=== PATIENT | male | born 1965 | race Two or more races ===

== ENCOUNTER 2024-02-11 04:53 | Inpatient (IN) | payer OTHER ==
[~2024-02-11] VITALS: Ht 165.1 cm; Wt 172.0 kg
[2024-02-11 05:39] LABS: BASOPHILS % (AUTO) 0.2 % (0.0-2.0); EOSINOPHILS % (AUTO) 0.2 % (1.0-6.0); HEMATOCRIT 40.4 % (41-53); HEMOGLOBIN 13.7 g/dL (13.5-17.5); LYMPHOCYTES # (AUTO) 1.1 K/uL (1.0-4.8); LYMPHOCYTES % (AUTO) 6.1 % (22.0-44.0); MEAN CORPUSCULAR HEMOGLOBIN 30.9 pg (26.0-34.0); MEAN CORPUSCULAR HGB CONC 33.9 G/dL (31.0-37.0); MEAN CORPUSCULAR VOLUME 91 fL (80-100); MONOCYTES # (AUTO) 1.4 K/uL (0.1-1.0); MONOCYTES % (AUTO) 7.7 % (2.0-9.0); NEUTROPHILS # (AUTO) 15.5 K/uL (1.8-7.7); PLATELET COUNT (AUTO) 373 K/uL (150-450); RED BLOOD CELL COUNT(AUTO) 4.44 MIL/uL (4.50-5.90); RED CELL DISTRIBUTION WIDTH 14.7 % (11.5-14.5); WHITE BLOOD COUNT (AUTO) 18.1 K/uL (4.5-11.0)
[2024-02-11 05:41] LABS: NEUTROPHILS % (AUTO) 85.8 % (40.0-70.0)
[2024-02-11 05:48] LABS: ANION GAP 11 mmol/L (8-16); CALCIUM, TOTAL 8.4 mg/dL (8.8-10.5); CARBON DIOXIDE 24 mmol/L (22-29); CHLORIDE 101 mmol/L (98-107); GLOMERULAR FILTR. RATE CALC > 60 mL/min (>60); GLUCOSE,RANDOM 148 mg/dL (70-110); POTASSIUM 3.9 mmol/L (3.5-5.1); SODIUM SERUM 136 mmol/L (136-145); UREA NITROGEN, BLOOD 15 mg/dL (7-18)
[2024-02-11 05:51] LABS: ALANINE AMINOTRANSFERASE 53 U/L (12-78); ALBUMIN 3.6 g/dL (3.4-5.0); ALKALINE PHOSPHATASE 147 U/L (46-116); ASPARTATE AMINOTRANSFERASE 33 U/L (15-37); BILIRUBIN,TOTAL 0.8 mg/dL (0.1-1.0); LIPASE 25 U/L (16-77); TOTAL PROTEIN, SERUM 8.1 g/dL (6.4-8.2)
[2024-02-11 05:51] LABS: APPEARANCE,URINE CLEAR (CLEAR); BILIRUBIN,URINE NEGATIVE (NEGATIVE); COLOR,URINE LIGHT YELLOW (YELLOW); GLUCOSE, URINE (UA) NEGATIVE (NEGATIVE); KETONES,URINE NEGATIVE (NEGATIVE); LEUKOCYTE ESTERASE ,URINE NEGATIVE (NEGATIVE); NITRATE,URINE NEGATIVE (NEGATIVE); OCCULT BLOOD,URINE SMALL (NEGATIVE); PROTEIN,URINE TRACE mg/dL (NEGATIVE); SPECIFIC GRAVITIY, URINE 1.026 (1.003-1.030); UROBILINOGEN,URINE <=1.0 mg/dL (<=1.0)
[2024-02-11 05:58] LABS: BACTERIA,URINE None Seen /HPF (None Seen); SQUAMOUS EPITHELIAL CELL,UR Few /LPF (None Seen); WBC,URINE None Seen /HPF (0-5)
[2024-02-11] MEDS: SODIUM CHLORIDE 0.9% 1,000 ML IV ONE (06:15)
[2024-02-11] MEDS: ONDANSETRON HCL 4 MG/2 ML VIAL IVP ONE (06:46)
[2024-02-11] MEDS: MORPHINE SULFATE 2 MG/ML SYRINGE IVP ONE (06:47)
[2024-02-11] MEDS: PIPERACILLIN/TAZO 3.375 GM/D5W 50 ML IV ONE (07:13)
[2024-02-11] MEDS ORDERED: 0.9% SODIUM CHLORIDE 10 ML SYRINGE IVP PRN (07:15)
[2024-02-11] MEDS ORDERED: ONDANSETRON HCL 4 MG/2 ML VIAL IVP PRN ×2 (07:15→14:30)
[2024-02-11] MEDS ORDERED: ACETAMINOPHEN 325 MG TABLET PO PRN ×2 (07:15→14:30)
[2024-02-11 07:21] LABS: PROTHROMBIN TIME 10.8 SEC (9.4-11.6)
[2024-02-11] MEDS: BUPIVACAINE 0.25%/EPI 1:200,000/PF 30 ML VIAL ONE (08:30)
[2024-02-11] MEDS ORDERED: RINGERS SOLUTION,LACTATED 1,000 ML IV ONE (08:39)
[2024-02-11] MEDS: ETHYL ALCOHOL 62% ANTISEPTIC NASAL SANITIZER 0.6 ML AMPUL NASAL ONE (09:36)
[2024-02-11] MEDS: CHLORHEXIDINE GLUCONATE 2% TOWELETTE [2'S/6'S] TP ONE (09:37)
[2024-02-11] MEDS: RINGERS SOLUTION,LACTATED 1,000 ML IV ONE (09:37)
[2024-02-11] MEDS ORDERED: FentaNYL CITRATE PF 100 MCG/2 ML VIAL IVP PRN (10:30)
[2024-02-11] MEDS ORDERED: HYDROmorphone HCL 2 MG/ML SYRINGE IVP PRN (10:30)
[2024-02-11] MEDS ORDERED: MEPERIDINE-PF 25 MG/ML VIAL IVP PRN (10:30)
[2024-02-11 13:02] VITALS: BP 112/66; PULSE 78; RESP 20; TEMP 99.7
[2024-02-11] MEDS ORDERED: ZOLPIDEM TARTRATE 5 MG TABLET PO PRN (14:30)
[2024-02-11] MEDS ORDERED: HYDROCODONE/ACETAMINOPHEN 5-325 MG TABLET PO PRN (14:30)
[2024-02-11] MEDS ORDERED: BISACODYL 10 MG RECTAL RECTAL SUPPOSITORY PR PRN (14:30)
[2024-02-11] MEDS ORDERED: MAGNESIUM HYDROXIDE SUSPENSION 30 ML UDCUP PO PRN (14:30)
[2024-02-11] MEDS ORDERED: MORPHINE SULFATE 2 MG/ML SYRINGE IVP PRN (14:30)
[2024-02-11 16:30] VITALS: BP 108/61; PULSE 70; RESP 18; TEMP 98.6
[2024-02-11] MEDS: HEPARIN SODIUM,PORCINE 5,000 UNITS/ML VIAL SQ SCH (16:52)
[2024-02-11] MEDS: PIPERACILLIN/TAZO 3.375 GM/D5W 50 ML IV SCH (17:08)
[2024-02-11 19:57] VITALS: BP 112/51; PULSE 74; RESP 18; TEMP 98.1
[2024-02-11] MEDS: OXYGEN THERAPY IH SCH (20:00)
[2024-02-11] MEDS: DOCUSATE SODIUM 100 MG CAPSULE PO SCH (23:10)
[2024-02-12 04:02] VITALS: BP 111/58; PULSE 68; RESP 19; TEMP 97.9
[2024-02-12] MEDS ORDERED: FentaNYL CITRATE PF 100 MCG/2 ML VIAL IVP ONE (06:31)
[2024-02-12] MEDS ORDERED: MIDAZOLAM HCL 2 MG/2 ML VIAL IVP ONE (06:32)
[2024-02-12] MEDS ORDERED: MORPHINE SULFATE/PF 0.5 MG/ML 10 ML AMP IVP ONE (06:33)
[2024-02-12] MEDS ORDERED: CeFAZolin SODIUM 1 GM VIAL IVP ONE (06:34)
[2024-02-12] MEDS ORDERED: KETOROLAC TROMETHAMINE 60 MG/2 ML VIAL IM ONE (06:35)
[2024-02-12] MEDS ORDERED: LIDOCAINE/PF 2% 5 ML VIAL IM ONE (06:35)
[2024-02-12] MEDS ORDERED: DEXAMETHASONE SOD PHOS 4 MG/ML VIAL IVP ONE (06:35)
[2024-02-12] MEDS ORDERED: ONDANSETRON HCL 4 MG/2 ML VIAL IVP ONE (06:36)
[2024-02-12] MEDS ORDERED: PROPOFOL 1% 20 ML VIAL IVP ONE (06:37)
[2024-02-12] MEDS ORDERED: ROCURONIUM BROMIDE 10 MG/ML 5 ML VIAL IVP ONE (06:39)
[2024-02-12] MEDS ORDERED: SUGAMMADEX SODIUM 200 MG/2 ML VIAL IVP ONE (06:47)
[2024-02-12 07:13] LABS: ALANINE AMINOTRANSFERASE 37 U/L (12-78); ALBUMIN 2.8 g/dL (3.4-5.0); ALKALINE PHOSPHATASE 95 U/L (46-116); ANION GAP 14 mmol/L (8-16); ASPARTATE AMINOTRANSFERASE 26 U/L (15-37); BILIRUBIN,TOTAL 1.1 mg/dL (0.1-1.0); CALCIUM, TOTAL 7.8 mg/dL (8.8-10.5); CARBON DIOXIDE 23 mmol/L (22-29); CHLORIDE 103 mmol/L (98-107); CREATININE 1.01 mg/dL (0.60-1.30); GLOMERULAR FILTR. RATE CALC > 60 mL/min (>60); GLUCOSE,RANDOM 138 mg/dL (70-110); POTASSIUM 3.9 mmol/L (3.5-5.1); SODIUM SERUM 140 mmol/L (136-145); TOTAL PROTEIN, SERUM 7.1 g/dL (6.4-8.2); UREA NITROGEN, BLOOD 22 mg/dL (7-18)
[2024-02-12 08:45] VITALS: BP 118/59; PULSE 70; RESP 18; TEMP 98.5
[2024-02-12 08:51] LABS: EOSINOPHILS % (AUTO) 0 % (1.0-6.0); HEMATOCRIT 38.2 % (41-53); HEMOGLOBIN 12.3 g/dL (13.5-17.5); LYMPHOCYTES # (AUTO) 1.1 K/uL (1.0-4.8); LYMPHOCYTES % (AUTO) 5.9 % (22.0-44.0); MEAN CORPUSCULAR HGB CONC 32.3 G/dL (31.0-37.0); MEAN CORPUSCULAR VOLUME 93 fL (80-100); MONOCYTES % (AUTO) 5.1 % (2.0-9.0); PLATELET COUNT (AUTO) 331 K/uL (150-450); RED BLOOD CELL COUNT(AUTO) 4.11 MIL/uL (4.50-5.90); WHITE BLOOD COUNT (AUTO) 19.1 K/uL (4.5-11.0)
[2024-02-12] MEDS: PANTOPRAZOLE SODIUM 40 MG DR TABLET PO SCH (10:08)
[2024-02-12 16:00] VITALS: BP 122/68; PULSE 66; RESP 18; TEMP 98
[2024-02-12 20:27] VITALS: BP 134/80; PULSE 69; RESP 20; TEMP 99
[2024-02-13 03:43] VITALS: BP 116/69; PULSE 58; RESP 18; TEMP 98.9
[2024-02-13 08:58] VITALS: BP 125/72; PULSE 59; RESP 18; TEMP 98.1
[2024-02-13 09:08] LABS: BASOPHILS % (AUTO) 0.6 % (0.0-2.0); EOSINOPHILS % (AUTO) 7.8 % (1.0-6.0); HEMATOCRIT 40.3 % (41-53); HEMOGLOBIN 13.5 g/dL (13.5-17.5); LYMPHOCYTES # (AUTO) 2.5 K/uL (1.0-4.8); LYMPHOCYTES % (AUTO) 27.6 % (22.0-44.0); MEAN CORPUSCULAR HGB CONC 33.6 G/dL (31.0-37.0); MEAN CORPUSCULAR VOLUME 92 fL (80-100); MONOCYTES # (AUTO) 0.6 K/uL (0.1-1.0); NEUTROPHILS # (AUTO) 5.1 K/uL (1.8-7.7); PLATELET COUNT (AUTO) 365 K/uL (150-450); RED BLOOD CELL COUNT(AUTO) 4.37 MIL/uL (4.50-5.90); RED CELL DISTRIBUTION WIDTH 15.2 % (11.5-14.5); WHITE BLOOD COUNT (AUTO) 8.9 K/uL (4.5-11.0)
[2024-02-13 09:21] LABS: ANION GAP 9 mmol/L (8-16); CALCIUM, TOTAL 8.2 mg/dL (8.8-10.5); CARBON DIOXIDE 26 mmol/L (22-29); CHLORIDE 106 mmol/L (98-107); GLOMERULAR FILTR. RATE CALC > 60 mL/min (>60); GLUCOSE,RANDOM 147 mg/dL (70-110); POTASSIUM 3.8 mmol/L (3.5-5.1); SODIUM SERUM 141 mmol/L (136-145); UREA NITROGEN, BLOOD 20 mg/dL (7-18)
[2024-02-13] MEDS ORDERED: AMOX1TAB15 PO (09:33)
== END 2024-02-13 16:56 | disposition home or self-care (01) | DRG 234 ==
LOC: EMS 04:55 → AHU 09:53 → 6N 12:56
PROVIDERS: ADMIT Internal Medicine; ATTEND Internal Medicine
PROC: 0DTJ4ZZ Resection of Appendix, Percutaneous Endoscopic Approach (ICD-10-PCS; principal; 2024-02-11 10:00)
DX: K35.80 Unspecified acute appendicitis (principal); E66.2 Morbid (severe) obesity with alveolar hypoventilation; R65.10 Systemic inflammatory response syndrome (SIRS) of non-infectious origin without acute organ dysfunction; R73.9 Hyperglycemia, unspecified; Z68.44 Body mass index [BMI] 60.0-69.9, adult
CPT/HCPCS: 71045; 74176; 80048; 80053; 81001; 83690; 85025; 85610; 85730; 86850; 86900; 86901; 87081; 99285; J0690; J1100; J1644; J1885; J2250; J2270; J2274; J2405; J2543; J2704; J3010; J3490; J7120; Q9967; 36415-L1; 36415-TC; Z7610